=== PATIENT | male | born 1990 ===

== ENCOUNTER 2024-03-30 10:16 | Emergency (ER) | payer OTHER ==
[2024-03-30] MEDS: Lidocaine 4% 1 each Patch TOP STA (10:53)
[2024-03-30] MEDS: Orphenadrine 60 MG/2 ML Inj IM ONE (10:55)
[2024-03-30] MEDS: Ketorolac 30 MG/ML SDV IM ONE (10:55)
[2024-03-30] MEDS: Cyclobenzaprine 10 MG Tab PO ONE (11:21)
[2024-03-30] MEDS: Ibuprofen 800 MG Tab PO ONE (11:21)
== END 2024-03-30 12:19 | disposition home or self-care (01) ==
LOC: MW.ED 10:16
DX: S16.1XXA Strain of muscle, fascia and tendon at neck level, initial encounter (principal); M25.511 Pain in right shoulder; M25.571 Pain in right ankle and joints of right foot; Z79.899 Other long term (current) drug therapy; Z75.8 Other problems related to medical facilities and other health care; V89.2XXA Person injured in unspecified motor-vehicle accident, traffic, initial encounter
CPT/HCPCS: 73030; 99284; A9270